=== PATIENT | male | born 1985 | race Caucasian/White ===

== ENCOUNTER 2021-05-12 07:38 | Emergency (ER) | payer BC, SELFPAY ==
[2021-05-12 07:52] VITALS: BP 153/79; PULSE 99; RESP 20; TEMP 38.4; O2SAT 94; BMI 24.3
[2021-05-12] MEDS: ondansetron 2 mg/ML SDV 2 mL 4 MG IVP (08:50)
[2021-05-12] MEDS: sodium chloride 0.9% 1,000 ML 999 ML IV ×2 (08:50→10:32)
[2021-05-12] MEDS: acetaminophen 500 mg Tablet 1000 MG PO (08:50)
[2021-05-12 09:08] VITALS: PULSE 92; O2SAT 95
--- NOTE | 2021-05-12 10:00 | ED_ITS ---
HPI - General Adult General: Chief complaint: Nausea/Vomiting/Diarrhea Stated complaint: COVID+/THROWING UP & COUGH Time Seen by Provider: 05/12/21 07:51 History of Present Illness: HPI narrative: Patient is a 36-year-old male without any significant past medical history presents the emergency room with complaints of nausea vomiting and decreased p.o. intake after diagnosis of Covid on . Patient began having symptoms 3 days ago. Since then, patient has had decreased p.o. intake. Denies any diarrhea, melena or hematochezia. Patient report occasional cough but denies any respiratory distress. Patient is here in the emergency room for significant vomiting at this time. Onset:3 days ago Duration:3 days Location:home Severity: moderate Review of Systems Narrative: Constitutional: No fever, no chills. HEENT: No vision changes CV: No chest pain, no palpitations PULM: no cough, no dyspnea. GI: No abdominal pain, +N/+V/-D. : No dysuria MSKEL: No muscle pain SKIN: No new rashes, no lesions. NEURO: No headache, no focal weakness. HEME: No visible bruises PSYCH: Normal mood Physical Exam 2 Narrative: EXAM NARRATIVE: Head: Atraumatic Eyes: PERRL, conjunctiva without injection ENT: Mucous membrane moist NECK: Supple, ROM intact LUNGS: LCTAB, no crackles/rhonchi CV: Sinus tachycardia ABDOMEN: Soft, nontender in all quadrants EXTREMITY: Normal ROM SKIN: No rash or erythema NEURO: Awake and alert, no focal motor deficits PSYCH: Normal mood and affect Course Vital Signs: Vital signs: Vital Signs Temperature 101.1 F H 05/12/21 07:52 Pulse Rate 80 05/12/21 13:00 Respiratory Rate 16 05/12/21 13:00 Blood Pressure 123/70 05/12/21 13:00 Pulse Oximetry 95 05/12/21 13:00 MDM - General Adult MDM Narrative: Medical decision making narrative: 36-year-old male presenting to the emergency room for concerns of nausea vomiting and decreased p.o. intake after diagnosis of Covid. On exam, patient is hemodynamically stable satting greater than 95%. Febrile to 100.2. Patient is on room air. Lungs appear to be clear with. Patient appears to be dry on exam. Patient received 2L of NS and zofran in the ED. He is able to tolerate p.o. at this point time. Fever improved with Tylenol. Disposition: Discharge. Patient counseled regarding diagnostic impression, treatment plan. Patient given ED strict return precautions to return for continuation, worsening, or development of new symptoms. Instructed to f/u w/ PCP regarding symptoms today. Patient verbalized understanding. Discharge Plan Discharge Patient Disposition: Home Clinical Impression: COVID, Nausea & vomiting Condition: Stable Discharge Orders: Discharge ED (Routine); Ordered 05/12/21 Ordered By: Ema Gregg Referrals: Madi Torres MD [Primary Care Provider] - Discharge Diet: Advance as tolerated Discharge Activity: Resume usual activity Patient Instructions: SARS (Severe Acute Respiratory Syndrome) (ED) Activity Restrictions/Additional Instructions: Come back to the emergency room if your nausea vomiting worsens, if you have any fever or chills, if you have any new or concerning complaints. Coding Level of Care Code ED Supervisor [facility] for [facility]
--- NOTE | 2021-05-12 10:33 | PC.NURSE ---
While at bedside pt is in nad. pt is awake calm and answering questions appropriately. pt denies any further needs.
[2021-05-12 11:30] VITALS: BP 120/67; PULSE 79; RESP 18; O2SAT 94
--- NOTE | 2021-05-12 11:33 | PC.NURSE ---
while at bedside pt reports that he drank 8 oz of apple juice and denies any vomiting dr. nicolasa norris formed no further orders.
[2021-05-12 13:00] VITALS: BP 123/70; PULSE 80; RESP 16; O2SAT 95
== END 2021-05-12 13:12 | disposition home or self-care (01) ==
PROVIDERS: Emergency Provider Emergency Medicine; PCP Family Medicine
DX: U07.1 COVID-19 (principal); R11.2 Nausea with vomiting, unspecified
CPT/HCPCS: 96361; 96374; 99284; J2405; J7030